=== PATIENT | male | born 1955 | race Caucasian/White ===

== ENCOUNTER → 2020-02-27 | Outpatient (CLI) | payer BC ==
--- NOTE | 2020-02-27 13:33 | KCIC ---
EXAM: MRI RIGHT SHOULDER WITHOUT CONTRAST INDICATION: Right shoulder pain COMPARISON: None TECHNIQUE: Multiplanar, multisequence imaging of the right shoulder without contrast. FINDINGS: ROTATOR CUFF: There is a deep partial-thickness bursal sided tear of the anterior supraspinatus tendo n measuring 7 x 8 mm (coronal and sagittal) at the footprint. Mild supraspinatus tendinopathy. Infras pinatus, subscapularis, and teres minor tendons are intact. No rotator cuff muscle atrophy or edema. LABRUM: No discrete labral tear. BICEPS TENDON: The biceps tendon is intact and located. ACROMIOCLAVICULAR JOINT: Mild degenerative joint disease. Type II acromion without downsloping. GLENOHUMERAL JOINT: Cartilage is intact. Marrow signal is normal. No acute fracture. Alignment is nor mal. OTHER: No joint effusion. Small amount of fluid in the subacromial-subdeltoid bursa.. IMPRESSION: 1. Small deep partial-thickness bursal sided tear of the distal anterior supraspinatus tendon. Mild s upraspinatus tendinopathy. 2. Mild subacromial-subdeltoid bursitis. Electronically signed by: Charlene Armas MD (02/27/2020 1:31 PM) [id number]
== END ==
LOC: KCIC MRI 10:54
PROVIDERS: ATTEND Chiropractor
DX: M75.101 Unspecified rotator cuff tear or rupture of right shoulder, not specified as traumatic (principal); M19.011 Primary osteoarthritis, right shoulder; M75.51 Bursitis of right shoulder; M75.21 Bicipital tendinitis, right shoulder
CPT/HCPCS: 73221